=== PATIENT | male | born 2000 | race Caucasian/White ===

== ENCOUNTER 2023-02-07 11:39 | Emergency (ER) | payer OTHER, BC, SELFPAY ==
--- NOTE | 2023-02-07 11:41 | ED.URI ---
HPI - URI/Sore Throat General Stated Complaint: Right shoulder injury Source: patient and RN notes reviewed Mode of arrival: ambulatory Limitations: no limitations Related Data Home Medications Medication Instructions Recorded Confirmed No Home Medications 06/28/19 06/28/19 Allergies Allergy/AdvReac Type Severity Reaction Status Date / Time No Known Allergies Allergy Verified 06/28/19 15:52 Review of Systems Review of Systems: CONSTITUTIONAL: Denies malaise, chills, sweats, or fever. SKIN: Denies rash or itching, open skin, laceration, abrasion, redness, warmth, swelling. MUSCULOSKELETAL: Reports left knee pain NEUROLOGIC: Denies numbness, weakness All systems reviewed & are unremarkable except as noted in HPI and below PMFSH Comments At time of signature, agree with nursing past medical, surgical, social and family history. There is no relevant family history pertinent to the presenting complaint Exam Narrative: GENERAL: Well-appearing, well-nourished, and in no acute distress. HEAD: Normocephalic, atraumatic. EYES: PERRLA, conjunctivae clear NECK: Supple. CHEST: Speaks in full sentences. No respiratory distress. HEART: Regular rate and rhythm. Normal and equal peripheral pulses. EXTREMITIES: [Xxx] has normal strength and sensation, normal range of motion. No edema or ecchymosis. 5/5 strength with [xxx] flexion and extension. Normal sensation with sensitivity to light touch and pain. No point tenderness. No open wounds, no skin tenting, no devitalized tissue or atrophy, no trophic changes, no obvious deformity, alignment normal, nearby joints and structures intact. Distal pulses palpable and equal bilaterally, skin warm, dry, pink. Capillary refill less than 3 seconds. SKIN: Warm, dry, no rash. NEURO: Alert and oriented x3. PSYCH: Normal mood and affect Course Course Emergency Course: Patient is aware of diagnosis, understands and agrees to treatment plan. Anticipatory guidance given. Patient agrees to follow-up as directed and is aware of reasons to seek care at the emergency department. Portions of this record may have been created with voice recognition software Level of Care: Express Care Visit Vital Signs Vital signs: Reviewed. Critical Care Time Critical Care Time Critical Care Time: No Discharge Plan Discharge Prescriptions: No Action No Home Medications Follow-up/Referrals: PHYSICIAN,DEPUTY REGISTER OF DEEDS [Primary Care Provider] -
--- NOTE | 2023-02-07 11:42 | ED.UPPEXIN ---
HPI - Extremity Injury (Upper) General Chief Complaint: Extremity Injury, Upper Stated Complaint: Right shoulder injury Time Seen by Provider: 02/07/23 12:04 Source: patient and RN notes reviewed Mode of arrival: ambulatory Limitations: no limitations History of Present Illness HPI narrative: 22-year-old male presents with concern for right shoulder pain. He reports chronic problems with his right shoulder for 4-5 years. He reports yesterday it felt like his shoulder came out of socket and he could not put it back in. He denies known injury. 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 in the past when he was lifting a gal of milk. He reports she full range of motion, but pain with certain movements such as putting his arm behind his back or bringing his arm forward when it is behind his back. He denies redness, tenderness, warmth, rash, open skin. He has not taken any medication for his problem. MD complaint: injury to: right and shoulder Related Data Home Medications Medication Instructions Recorded Confirmed No Home Medications 06/28/19 06/28/19 Allergies Allergy/AdvReac Type Severity Reaction Status Date / Time No Known Allergies Allergy Verified 02/07/23 11:56 Review of Systems Review of Systems: CONSTITUTIONAL: Denies malaise, chills, sweats, or fever. SKIN: Denies rash or itching, open skin, laceration, abrasion, redness, warmth, swelling. MUSCULOSKELETAL: Reports right shoulder pain NEUROLOGIC: Denies numbness, weakness All systems reviewed & are unremarkable except as noted in HPI and below PMFSH Comments At time of signature, agree with nursing past medical, surgical, social and family history. There is no relevant family history pertinent to the presenting complaint Exam Narrative: GENERAL: Well-appearing, well-nourished, and in no acute distress. HEAD: Normocephalic, atraumatic. EYES: PERRLA, conjunctivae clear NECK: Supple. CHEST: Speaks in full sentences. No respiratory distress. HEART: Regular rate and rhythm. Normal and equal peripheral pulses. EXTREMITIES: Right upper extremity has grossly normal strength and sensation, grossly normal range of motion. No edema or ecchymosis. 5/5 strength with shoulder abduction and adduction. Normal sensation with sensitivity to light touch and pain. No point tenderness. No open wounds, no skin tenting, no devitalized tissue or atrophy, no trophic changes, no obvious deformity, alignment normal, nearby joints and structures intact. Distal pulses palpable and equal bilaterally, skin warm, dry, pink. Capillary refill less than 3 seconds. SKIN: Warm, dry, no rash. NEURO: Alert and oriented x3. PSYCH: Normal mood and affect Course Course Emergency Course: Patient is aware of diagnosis, understands and agrees to treatment plan. Anticipatory guidance given. Patient agrees to follow-up as directed and is aware of reasons to seek care at the emergency department. Portions of this record may have been created with voice recognition software Level of Care: Express Care Visit Vital Signs Vital signs: Reviewed. MDM - Extremity Injury (Upper) MDM Narrative Medical decision making narrative: Patients pain is consistent with musculoskeletal etiology. No signs of neurological or vascular compromise on exam. Compartments and tissues are soft without signs of compartment syndrome. Pain is felt appropriate for further evaluation on an outpatient basis. Critical Care Time Critical Care Time Critical Care Time: No Discharge Plan Discharge Clinical Impression: Right shoulder pain Patient Disposition: Home, Self-Care Condition: Stable Instructions: Shoulder Pain (ED) Additional Instructions: Avoid activities that cause pain until the pain subsides. Tylenol for lesser pain Ibuprofen regularly for the next 2-3 days for the inflammation Follow up with your primary care provider if the condition
[2023-02-07 11:56] VITALS: BP 129/68; PULSE 83; RESP 14; TEMP 37.5; O2SAT 100
== END 2023-02-07 12:16 | disposition home or self-care (01) ==
PROVIDERS: Emergency Provider Nurse Practitioner
DX: M25.511 Pain in right shoulder (principal)
CPT/HCPCS: 99211; G0463

== ENCOUNTER 2023-05-19 18:11 | Emergency (ER) | payer OTHER, BC, SELFPAY ==
--- NOTE | 2023-05-19 18:19 | ED.URI ---
HPI - URI/Sore Throat General Chief Complaint: Upper Respiratory Infection Stated Complaint: INHALED CLEANING CHEMICALS Source: patient Mode of arrival: ambulatory Limitations: no limitations History of Present Illness HPI Narrative: 22-year-old male presented for complaint of frequent cough and lung irritation after inhaling cleaning products while at work today. 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 States coughing started about one hour later. Denies smoking or history of asthma. cough is frequent and nonproductive. Denies hemoptysis, sob or wheezing, dizziness, fever or chills. Related Data Home Medications Medication Instructions Recorded Confirmed aripiprazole 5 mg tablet 5 mg PO DAILY 05/19/23 05/19/23 estradiol 2 mg tablet 2 mg PO BID 05/19/23 05/19/23 fluoxetine 10 mg capsule 10 mg PO DAILY 05/19/23 05/19/23 spironolactone 50 mg tablet 50 mg PO DAILY 05/19/23 05/19/23 Allergies Allergy/AdvReac Type Severity Reaction Status Date / Time No Known Allergies Allergy Verified 05/19/23 18:21 Review of Systems Review of Systems: CONSTITUTIONAL: Denies body aches, fever, chills, or sweats. EYES: Denies visual changes, redness, or discharge. ENT: Denies rhinorrhea, congestion, sore throat, or otalgia. CARDIOVASCULAR: Denies chest pain, palpitations, or edema. RESPIRATORY: Reports cough, denies sob, wheezing. GASTROINTESTINAL: Denies abdominal pain, nausea, vomiting, or diarrhea. GENITOURINARY: Denies dysuria or hematuria. SKIN: Denies rash, itching, or wounds. MUSCULOSKELETAL: Denies back pain, joint pain, or myalgia. NEUROLOGIC: Denies headache, numbness, tingling, or weakness. All systems reviewed & are unremarkable except as noted in HPI and below [facility] Past Medical History Medical History (Updated 05/19/23 @ 18:39 by Grisel Salgado, ISABELLA) No pertinent past medical history Comments At time of signature, I have reviewed and agree with nursing past medical, surgical, social and family history unless otherwise noted. Please see nursing chart for further information. There is no relevant family history pertinent to the presenting complaint Exam Narrative: GENERAL: Well-appearing, in no acute distress. EYES: EOMI. No redness or drainage. Conjunctivae normal. ENT: Mucous membranes pink and moist. No rhinorrhea. TMs normal bilaterally. Throat normal. Uvula midline. NECK: Normal AROM. Supple. CHEST: No respiratory distress. Frequent machine technician cough, mostly at the end of deep breath. Lungs clear to all garvin. HEART: Regular rate and rhythm. No murmur appreciated. ABDOMEN: Soft, nontender, nondistended, normal active bowel sounds. EXTREMITIES: Normal range of motion. No edema. SKIN: Warm, dry, no rash. Capillary refill normal. Normal skin turgor. NEURO: Alert and oriented x3. Gait steady. PSYCH: Normal affect. Course Course Emergency Course: Patient is aware of diagnosis, understands and agrees to treatment plan. Anticipatory guidance given. Patient agrees to follow-up as directed and is aware of reasons to seek care at the emergency department. Portions of this record may have been created with voice recognition software Level of Care: Express Care Visit MDM - URI/Sore Throat MDM Narrative Medical decision making narrative: Discussed physical exam findings; lungs clear, frequent cough. VSS. He is advised if no improvement or worsening symptoms after starting Rxs to go to the ER. Advised supportive measures and signs/symptoms to go to the ER. Pt is appropriate for outpt treatment and f/u. Differential Diagnosis Differential diagnosis: Likely upper respiratory infection, bronchitis, pharyngitis and other (pneumonitis, asthma, chemical irritant inhalation exposure) Discharge Plan Discharge Clinical Impression: Exposure to chemical inhalation Patient Disposition: Home, Self-Care Condition: Stable Instructions: Pneumonitis
[2023-05-19 18:21] VITALS: BP 137/76; PULSE 73; RESP 16; TEMP 37.4; O2SAT 100
[2023-05-19 18:24] VITALS: BP 137/76; PULSE 73; RESP 16; TEMP 37.4; O2SAT 100
== END 2023-05-19 18:39 | disposition home or self-care (01) ==
PROVIDERS: Emergency Provider Nurse Practitioner Family; PCP Internal Medicine
DX: T59.91XA Toxic effect of unspecified gases, fumes and vapors, accidental (unintentional), initial encounter (principal)
CPT/HCPCS: 99213; G0463

== ENCOUNTER 2023-07-20 20:13 | Emergency (ER) | payer BC, SELFPAY ==
[2023-07-20] VITALS (18 sets, daily range): BP systolic 113–148; BP diastolic 64–87; PULSE 53–72; RESP 9–20; TEMP 36.5; O2SAT 99–100
--- NOTE | ~2023-07-20 | XR_ITS ---
EXAMINATION: XR chest 2V DATE: 07/20/2023 20:22 INDICATION: Midsternal chest pain. TECHNIQUE: Frontal and lateral views of the chest were obtained. COMPARISON: None. FINDINGS: There is no pneumonia, pleural effusion, or pneumothorax. The heart size is normal. IMPRESSION: 1. No acute cardiopulmonary disease. Reviewed, dictated and finalized at location [facility]
--- NOTE | 2023-07-20 20:15 | ECG_ITS ---
Measurements Intervals [place] Rate: 61 P: 25 WI: 170 QRS: 26 QRSD: 108 T: 33 QT: 419 QTc: 424 Interpretive Statements SINUS RHYTHM NO PREVIOUS ECG AVAILABLE FOR COMPARISON Electronically Signed On 07-22-2023 10:17:06 STOCK RECEIVER by Zeferino Roach M.D.
[2023-07-20 20:56] LABS: Basophils Absolute Auto 0.1 K/mm3 (0.0-0.1); Basophils Percent Auto 0.7 % (0.2-1.2); Eosinophils Absolute Auto 0.1 K/mm3 (0-0.3); Eosinophils Percent Auto 1.7 % (0-4.4); Hematocrit 45.5 % (42.0-52.0); Immature Granulocyte Absolute 0.03 K/mm3 (0.00-0.031); Immature Granulocyte Percent A 0.4 % (0-0.5); Lymphocytes Absolute Auto 1.93 K/mm3 (0.9-3.2); Lymphocytes Percent Auto 25.9 % (18.3-44.2); Mean Corpuscular Hemoglobin 29.4 pg (26-34); Mean Corpuscular Volume 89.2 fl (80-100); Mean Platelet Volume 10.7 fl (7.4-10.4); Monocytes Absolute Auto 0.5 K/mm3 (0.1-0.6); Monocytes Percent Auto 6.6 % (2.6-8.5); Neutrophils Absolute Auto 4.8 K/mm3 (1.3-6.7); Neutrophils Percent Auto 64.7 % (45.5-73.1); Platelet Count Result 217 k/mm3 (150-375); Red Cell Distribution Width 12.2 % (11.5-14.5); White Blood Count 7.4 K/mm3 (4.5-10.0)
[2023-07-20 21:06] LABS: Alanine Aminotransferase 16 U/L (6-50); Albumin Level 5.5 g/dL (3.5-5.1); Alkaline Phosphatase 54 U/L (38-126); Anion Gap 11 mmol/L (8-16); Aspartate Amino Transferase 26 U/L (17-59); Bilirubin,Total 0.3 mg/dL (0.2-1.3); Blood Urea Nitrogen 21 mg/dL (9-20); Calcium 9.9 mg/dL (8.4-10.2); Carbon Dioxide 26 mmol/L (22-30); Chloride 101 mmol/L (98-107); Estimated CRCL calculation 111 ml/min; Estimated Glomerular Filt Rate > 60; Glucose 91 mg/dL (65-110); Lipase 65 U/L (23-300); Partial Thromboplastin Time 28.8 SECONDS (22.3-36.8); Prothrombin Time 13.2 Seconds (11.1-14.7); Sodium 138 mmol/L (137-145)
[2023-07-20 21:17] LABS: Troponin I < 0.012 ng/mL (0.000-0.034)
[2023-07-20 23:08] LABS: Influenza A QL RT-PCR Negative (Negative); Influenza B QL RT-PCR Negative (Negative); RSV RNA, RT-PCR Negative (Negative); SARS-CoV-2 RNA PCR Negative (Negative)
[2023-07-20 23:52] LABS: Troponin I < 0.012 ng/mL (0.000-0.034)
[2023-07-21] VITALS (19 sets, daily range): BP systolic 117–125; BP diastolic 64–82; PULSE 52–71; RESP 11–22; O2SAT 97–100
--- NOTE | 2023-07-21 01:17 | ED.GENADULT ---
HPI - General Adult General Chief complaint: Chest Pain Stated complaint: cp Time Seen by Provider: 07/20/23 22:15 History of Present Illness HPI narrative: This is a 22-year-old male who identifies as female undergoing hormone therapy presenting for chest pain. Chest pain is the center of her chest, stabbing pain is nonradiating 2/10 at intensity at rest and 10 out 10 intensity when she twists her body. Is improving. She has had pain like this several times a year for the last 7 or 8 years but has never been evaluated. Pain is worse with movement and twisting motions. There are no alleviating factors. She has not taken any pain medication. Patient denies shortness of breath, lower extremity edema, nausea vomiting diarrhea or diaphoresis. Patient is taking estradiol for hormone replacement Related Data Home Medications Medication Instructions Recorded Confirmed aripiprazole 5 mg tablet 5 mg PO DAILY 05/19/23 05/19/23 estradiol 2 mg tablet 2 mg PO BID 05/19/23 05/19/23 fluoxetine 10 mg capsule 10 mg PO DAILY 05/19/23 05/19/23 spironolactone 50 mg tablet 50 mg PO DAILY 05/19/23 05/19/23 Allergies Allergy/AdvReac Type Severity Reaction Status Date / Time No Known Allergies Allergy Verified 05/19/23 18:21 [facility] Past Medical History Medical History No pertinent past medical history Transgender Exam Narrative: APPEARANCE: No apparent distress. Head: atraumatic. EYES: EOMI, NOSE: Atraumatic NECK: Trachea midline Chest: Tenderness to palpation over the upper sternum. No overlying skin changes. RESPIRATORY: No increased rate of breathing, clear to auscultation CARDIOVASCULAR: RRR, no peripheral edema ABDOMINAL: Non-distended MUSCULOSKELETAl: No obvious deformities NEURO: Alert. Moving 4/4 extremities SKIN:: Warm, dry. Normal color PSYCHIATRIC: Normal affect Course Vital Signs Vital signs: Vital Signs Temperature 97.7 F 07/20/23 20:29 Pulse Rate 63 07/20/23 20:29 Respiratory Rate 20 07/20/23 20:29 Blood Pressure 148/87 H 07/20/23 20:29 Pulse Oximetry 100 07/20/23 20:29 Oxygen Delivery Room Air 07/20/23 20:29 Temperature 97.7 F 07/20/23 20:29 Pulse Rate 60 07/20/23 21:58 Respiratory Rate 20 07/20/23 20:29 Blood Pressure 148/87 H 07/20/23 20:29 Pulse Oximetry 100 07/20/23 21:58 Oxygen Delivery Room Air 07/20/23 21:58 Medical Decision Making [facility] Narrative Medical decision making narrative: -Course: 22-year-old presenting with reproducible chest pain that is worse with movement. Workup including laboratory studies chest x-ray an EKG was reassuring. Viral swabs negative. PE was considered as the patient is on estrogen therapy, however she is not tachycardic/short of breath and her chest pain is reproducible w/ movement/palpation. Patient will be discharged on trial of NSAID therapy with return precautions. -DDX includes but is not limited to: Chest wall pain, pneumonia, pneumothorax, PE, viral syndrome -Co-morbidities complicating care: Transgender on estrogen therapy -Social determinants of health: Works at [employer], lives with roommates -Independent interpretation of studies: Laboratory studies normal. Troponin negative. Viral swabs negative. Chest X raying negative. Independent EKG interpretation: Rhythm [sinus], Rate [61], [place] -[normal], [place] -[normal], QRS [narrow], QTC [normal], T waves -[negative for concerning inversions], ST Segments - [Negative for concerning elevations] Final interpretations: [Normal Sinus Rhythm] Interventions: Motrin Tylenol Robaxin shared/decision making: Discharged RX: Motrin Tylenol Robaxin Vital Signs Vital Signs: Vital Signs Temperature 97.7 F 07/20/23 20:29 Pulse Rate 63 07/20/23 20:29 Respiratory Rate 20 07/20/23 20:29 Blood Pressure 148/87 H 07/20/23 20:29 Pulse Oximetry 100 07/20/23 20:29 Oxygen Delivery Room Air 07/20/23 20:29 Temperature 97.7 F 07/20/23 20:29 Pulse
[2023-07-21] MEDS: IBUPROFEN 400 MG TABLET 800 MG PO (02:10)
[2023-07-21] MEDS: methocarbamoL 750 MG TABLET 1500 MG PO (02:12)
[2023-07-21] MEDS: ACETAMINOPHEN 500 MG TABLET 1000 MG PO (02:12)
== END 2023-07-21 02:19 | disposition home or self-care (01) ==
PROVIDERS: Emergency Provider Emergency Medicine; PCP Internal Medicine
DX: R07.89 Other chest pain (principal); Z20.822 Contact with and (suspected) exposure to COVID-19; Z79.890 Hormone replacement therapy
CPT/HCPCS: 36415; 71046; 80053; 83690; 84484; 85025; 85610; 85730; 87637; 93005; 99284; A9270